=== PATIENT | male | born 1985 | race Caucasian/White ===

== ENCOUNTER 2018-09-26 15:13 | Inpatient (IN) | payer OTHER ==
[2018-09-26 16:03] LABS: ALBUMIN 2.6 gm/dl (3.4-5.0); BILIRUBIN,TOTAL 9.3 mg/dl (0.2-1.0); CALCIUM 8.1 mg/dl (8.5-10.1); CARBON DIOXIDE 26.2 mEq/L (21-32); CREATININE 1.97 mg/dl (0.80-1.30); TOTAL PROTEIN 7.1 gm/dl (6.4-8.2)
[2018-09-26 16:16] LABS: INR 1.51 (0.87-1.13)
[2018-09-26] MEDS ORDERED: ALBUMIN HUMAN 25 GM/100 ML SOL IV ONE (17:04)
[2018-09-26] MEDS ORDERED: SODIUM CHLORIDE 0.9% 50 ML 25 ML IV PRN (17:29)
[2018-09-26] MEDS ORDERED: ALBUTEROL/IPRATROPIUM 1 VIAL SOL INH PRN (17:31)
[2018-09-26] MEDS ORDERED: ALBUMIN HUMAN 200 ML IV ONE (17:44)
[2018-09-26] MEDS ORDERED: POTASSIUM CHLORIDE 10 MEQ TER PO SCH (17:46)
[2018-09-26] MEDS ORDERED: POTASSIUM CHLORIDE 2 MEQ/ML 60 MEQ, LIDOCAINE HCL 1% MDV 2 ML in SODIUM CHLORIDE 0.9% 1... IV ONE (17:47)
[2018-09-26] MEDS ORDERED: CEFTRIAXONE 1 GM PDS ONE (17:52)
[2018-09-26] MEDS ORDERED: SODIUM CHLORIDE 0.9% 50 ML 50 ML IV ONE (17:52)
[2018-09-26] MEDS: CEFTRIAXONE 1 GM PDS 1 GM in SODIUM CHLORIDE 0.9% 50 ML 50 ML IV SCH (18:02)
[2018-09-26] MEDS ORDERED: POTASSIUM CHLORIDE 2 MEQ/ML SOL IV ONE (18:11)
[2018-09-26] MEDS ORDERED: LIDOCAINE HCL 1% MPF 30 SOL ONE (18:12)
[2018-09-26] MEDS: NICOTINE 7 MG PATCH TD SCH (18:21)
[2018-09-26 18:28] LABS: MAGNESIUM 1.9 mg/dl (1.8-2.4)
[2018-09-26 19:15] LABS: PLEURAL FLUID RBCS 79 /mm3
[2018-09-26 19:20] LABS: PLEURAL FLUID GLUCOSE 144 mg/dl
[2018-09-26 20:36] LABS: PLEURAL FLUID OTHER CELLS 0 %
[2018-09-26] MEDS ORDERED: MIDODRINE HCL 10 MG PO SCH (21:00)
[2018-09-26] MEDS: SODIUM CHLORIDE 0.9% FLUSH 10 ML SOL IV SCH (21:19)
[2018-09-26] MEDS: GABAPENTIN 100 MG CAP PO SCH (21:19)
[2018-09-26] MEDS: OXYCODONE HYDROCHLORIDE 5 MG TAB PO PRN (21:22)
[2018-09-26] MEDS: RIFAXIMIN 550 MG TAB PO SCH (23:25)
[2018-09-26] MEDS: MELATONIN 3 MG TAB PO SCH (23:25)
[2018-09-27] MEDS: SODIUM CHLORIDE 0.9% 1000ML 1,000 ML IV SCH ×4 (01:10→22:34)
[2018-09-27] MEDS: OXYCODONE HYDROCHLORIDE 5 MG TAB PO PRN ×3 (04:24→19:01)
[2018-09-27] MEDS ORDERED: CEFTRIAXONE 1 GM PDS ONE ×2 (05:29→18:27)
[2018-09-27] MEDS ORDERED: SODIUM CHLORIDE 0.9% 50 ML 50 ML IV ONE ×2 (05:29→18:28)
[2018-09-27] MEDS: CEFTRIAXONE 1 GM PDS 1 GM in SODIUM CHLORIDE 0.9% 50 ML 50 ML IV SCH ×2 (05:37→18:33)
[2018-09-27] MEDS: SODIUM CHLORIDE 0.9% FLUSH 10 ML SOL IV SCH ×4 (05:37→21:14)
[2018-09-27 07:40] LABS: ALBUMIN 2.6 gm/dl (3.4-5.0); BILIRUBIN,TOTAL 8.6 mg/dl (0.2-1.0); CALCIUM 7.9 mg/dl (8.5-10.1); CARBON DIOXIDE 24.1 mEq/L (21-32); CREATININE 1.65 mg/dl (0.80-1.30); TOTAL PROTEIN 6.2 gm/dl (6.4-8.2)
[2018-09-27 07:41] LABS: INR 1.59 (0.87-1.13)
[2018-09-27] MEDS ORDERED: POTASSIUM CHLORIDE 2 MEQ/ML 40 MEQ, LIDOCAINE HCL 1% MDV 2 ML in SODIUM CHLORIDE 0.9% 5... IV ONE (07:52)
[2018-09-27 07:54] LABS: BASOPHILS % (AUTO) 1 % (0-3); EOSINOPHILS % (AUTO) 1 % (0-9); HEMATOCRIT 28 % (39-53); HEMOGLOBIN 8.5 gm/dl (13.5-17.7); MEAN CORPUSCULAR HEMOGLOBIN 30.7 pg (27.0-32.0); MEAN CORPUSCULAR HGB CONC 30.6 gm/dl (32.0-36.0); MONOCYTES % (AUTO) 8.7 % (0-12); NEUTROPHILS % (AUTO) 80.1 % (37-80)
[2018-09-27] MEDS ORDERED: POTASSIUM CHLORIDE 10 MEQ TER PO SCH (08:00)
[2018-09-27 08:01] LABS: MEAN CORPUSCULAR VOLUME 100 fL (80-100)
[2018-09-27] MEDS: FUROSEMIDE 20 MG TAB PO SCH (08:33)
[2018-09-27 08:36] LABS: ANISOCYTOSIS SLIGHT AMT; OVALOCYTES PRESENT; POIKILOCYTOSIS SLIGHT AMT; TARGET CELLS PRESENT
[2018-09-27] MEDS ORDERED: LIDOCAINE HCL 1% MPF 30 SOL ONE (08:58)
[2018-09-27] MEDS ORDERED: POTASSIUM CHLORIDE 2 MEQ/ML SOL IV ONE (08:58)
[2018-09-27] MEDS ORDERED: NICOTINE 21 MG PATCH TD SCH (09:00)
[2018-09-27] MEDS: FOLIC ACID 1 MG TAB PO SCH (09:28)
[2018-09-27] MEDS: GABAPENTIN 100 MG CAP PO SCH ×2 (09:28→20:04)
[2018-09-27] MEDS: ESCITALOPRAM 10 MG TAB PO SCH (09:28)
[2018-09-27] MEDS: THIAMINE 100 MG TAB PO SCH (09:28)
[2018-09-27] MEDS: MULTIVITAMIN2 1 EA TAB PO SCH (09:28)
[2018-09-27] MEDS: TIOTROPIUM BROMIDE 18 MCG CAP INH SCH (09:29)
[2018-09-27] MEDS: RIFAXIMIN 550 MG TAB PO SCH ×2 (09:30→20:05)
[2018-09-27] MEDS: MIDODRINE HCL 10 MG PO SCH ×3 (09:44→16:20)
[2018-09-27] MEDS: MAGNESIUM OXIDE 400 MG TAB PO SCH (09:45)
[2018-09-27] MEDS: SPIRONOLACTONE 25 MG TAB PO SCH (09:45)
[2018-09-27 16:31] LABS: CALCIUM 7.8 mg/dl (8.5-10.1); CARBON DIOXIDE 23.9 mEq/L (21-32); CREATININE 1.72 mg/dl (0.80-1.30)
[2018-09-27] MEDS ORDERED: DARBEPOETIN ALFA 100 MCG SUBCUT SCH (17:31)
[2018-09-27] MEDS ORDERED: POTASSIUM CHLORIDE 10 MEQ TER PO ONE (18:31)
[2018-09-27] MEDS: NICOTINE 7 MG PATCH TD SCH (18:33)
[2018-09-27] MEDS: MELATONIN 3 MG TAB PO SCH (20:04)
[2018-09-27 20:13] VITALS: O2SAT 98
[2018-09-28] MEDS: OXYCODONE HYDROCHLORIDE 5 MG TAB PO PRN (00:28)
[2018-09-28] MEDS ORDERED: CEFTRIAXONE 1 GM PDS ONE (05:26)
[2018-09-28] MEDS ORDERED: SODIUM CHLORIDE 0.9% 50 ML 50 ML IV ONE (05:26)
[2018-09-28] MEDS: CEFTRIAXONE 1 GM PDS 1 GM in SODIUM CHLORIDE 0.9% 50 ML 50 ML IV SCH (05:33)
[2018-09-28] MEDS: SODIUM CHLORIDE 0.9% FLUSH 10 ML SOL IV SCH (06:24)
[2018-09-28 07:31] LABS: CALCIUM 7.9 mg/dl (8.5-10.1); CARBON DIOXIDE 22.7 mEq/L (21-32); CREATININE 1.66 mg/dl (0.80-1.30)
[2018-09-28 07:48] LABS: BASOPHILS % (AUTO) 1 % (0-3); EOSINOPHILS % (AUTO) 1 % (0-9); HEMATOCRIT 28 % (39-53); HEMOGLOBIN 8.7 gm/dl (13.5-17.7); LYMPHOCYTES % (AUTO) 13.1 % (10-50); MEAN CORPUSCULAR HEMOGLOBIN 31.1 pg (27.0-32.0); MEAN CORPUSCULAR HGB CONC 30.9 gm/dl (32.0-36.0); MONOCYTES % (AUTO) 8.1 % (0-12); NEUTROPHILS % (AUTO) 76.8 % (37-80)
[2018-09-28 08:00] VITALS: BP 129/83; PULSE 83; RESP 14; TEMP 98.1
[2018-09-28] MEDS: MIDODRINE HCL 10 MG PO SCH (08:03)
[2018-09-28 08:09] LABS: MEAN CORPUSCULAR VOLUME 101 fL (80-100)
[2018-09-28] MEDS ORDERED: CIPROFLOXACIN HCL 500 MG TAB PO SCH (08:15)
[2018-09-28] MEDS ORDERED: POTASSIUM CHLORIDE 10 MEQ TER PO SCH (09:00)
[2018-09-28] MEDS: GABAPENTIN 100 MG CAP PO SCH (09:51)
[2018-09-28] MEDS: RIFAXIMIN 550 MG TAB PO SCH (09:51)
[2018-09-28] MEDS: SPIRONOLACTONE 25 MG TAB PO SCH (09:52)
[2018-09-28] MEDS: MULTIVITAMIN2 1 EA TAB PO SCH (09:53)
[2018-09-28] MEDS: THIAMINE 100 MG TAB PO SCH (09:53)
[2018-09-28] MEDS: FUROSEMIDE 20 MG TAB PO SCH (09:54)
[2018-09-28] MEDS: ESCITALOPRAM 10 MG TAB PO SCH (09:54)
[2018-09-28] MEDS: MAGNESIUM OXIDE 400 MG TAB PO SCH (09:54)
[2018-09-28] MEDS: FOLIC ACID 1 MG TAB PO SCH (09:54)
[2018-09-28] MEDS: TIOTROPIUM BROMIDE 18 MCG CAP INH SCH (09:56)
== END 2018-09-28 10:20 | DRG 432 ==
LOC: ACUTEOP 15:13 → ACUTE CARE 16:40 → UNDOADMIN 16:40 → ACUTE CARE 17:30
PROVIDERS: ADMIT Family Medicine; ATTEND Family Medicine
DX: K70.31 Alcoholic cirrhosis of liver with ascites (principal); K65.2 Spontaneous bacterial peritonitis; E87.6 Hypokalemia; N18.9 Chronic kidney disease, unspecified; F32.9 Major depressive disorder, single episode, unspecified; J45.909 Unspecified asthma, uncomplicated; D64.9 Anemia, unspecified
CPT/HCPCS: 36415; 80048; 80053; 82140; 82945; 83735; 84100; 85025; 85610; 87070; 87075; 89051; 93012; 99070; 99211; J0696; J3480; P9047; A6232; A9270-GY; J0881; J2001